=== PATIENT | male | born 1990 | race Caucasian/White ===

== ENCOUNTER 2021-08-01 20:38 | Emergency (ER) | payer OTHER ==
[2021-08-01 20:50] VITALS: BP 146/49
[2021-08-01] MEDS ORDERED: cephALEXin 250 MG CAPSULE PO STA (21:03)
[2021-08-01] MEDS ORDERED: CEPHALEXIN 250 MG Prepack 8 CAP BOTTLE PO STA (21:03)
[2021-08-01] MEDS ORDERED: MUPIROCIN 2% OINT 1 GM TOP STA (21:04)
--- NOTE | 2021-08-01 21:06 | ED Physician Documentation ---
PD HPI LOWER EXT INJURY - Stated complaint Stated Complaint: LEG SWELLING - Chief complaint Chief Complaint: Laceration - History obtained from History obtained from: Patient - Additional information Additional information: Cut his left leg in a work-related accident, [id number] on July 13. Was seen in another hospital and the wound was closed with julia. Julia removed on July 20. Over the last few days increasing pain and swelling around the wound without fevers. Also some redness and drainage. Review of Systems Constitutional: reports: Reviewed and negative Eyes: reports: Reviewed and negative Ears: reports: Reviewed and negative Nose: reports: Reviewed and negative Throat: reports: Reviewed and negative Cardiac: reports: Reviewed and negative PD PAST MEDICAL HISTORY - Past Medical History Past Medical History: No - Past Surgical History Past Surgical History: Yes - Present Medications Home Medications: Ambulatory Orders Medication Instructions Recorded Confirmed Hydrocodone/Acetaminophen 1 tab PO Q6HR PRN 08/01/21 08/01/21 [Hydrocodone-Acetamin 5-300 mg] Mupirocin 2% Oint [Bactroban 2% 1 applic TOP BID #50 gm 08/01/21 Oint] Naproxen 500 mg PO BID 08/01/21 08/01/21 cephALEXin [Keflex] 500 mg PO Q6H #40 cap 08/01/21 - Allergies Allergies/Adverse Reactions: Allergies Allergy/AdvReac Type Severity Reaction Status Date / Time No Known Drug Allergies Allergy Verified 08/01/21 20:50 - Social History Does the pt smoke?: No Smoking Status: Never smoker Does the pt drink ETOH?: Yes Does the pt have substance abuse?: No - Immunizations Immunizations are current?: Yes - POLST Patient has POLST: No PD ED PE NORMAL - Vitals Vital signs reviewed: Yes - General General: Alert and oriented X 3, No acute distress - Extremities Extremities: Other (About a 10 cm slightly dehisced incision on the left anterolateral lower leg with mild surrounding cellulitis and some purulent drainage at the base of the wound which was sent for culture.) - Neuro Neuro: Alert and oriented X 3, Normal speech - Psych Psych: Normal mood, Normal affect Results - Vitals Vitals: Vital Signs - 24 hr 08/01/21 20:43 Temperature 36.6 C Heart Rate 54 L Respiratory 16 Rate Blood Pressure 146/49 H O2 Saturation 98 Oxygen O2 Source Room air - Labs Labs: Microbiology 08/01/21 21:00 Wound Culture - Preliminary Leg - Left PD MEDICAL DECISION MAKING - ED course ED course: Wound was cultured and it was dressed with mupirocin and he is started on Keflex ending results of wound culture. Departure - Departure Disposition: 01 Home, Self Care Clinical Impression: Wound infection Condition: Good Record reviewed to determine appropriate education?: Yes Instructions: ED Wound Infec After Surgery Prescriptions: Mupirocin 2% Oint [Bactroban 2% Oint] 1 applic TOP BID #50 gm cephALEXin [Keflex] 500 mg PO Q6H #40 cap Comments: I sent the prescription for the antibiotic electronically to [facility] in [place]. Return if worsening, if you develop a fever, or pain is more severe. Follow-up with your primary care physician Tuesday or Tuesday for recheck. For wound care you can wash with soap and water. It is okay to be a little rough with it to get any material out when you wash it. Then use the antibiotic ointment which I also sent to the pharmacy with a dry dressing on top. We are performing a wound culture, the results should be done in 48-72 hours. If antibiotic change is necessary we will call you. Return if worse in the meantime, especially if you develop increased pain, fevers, cannot keep down the medication. Otherwise follow-up with your physician in approximately 2-3 days. Discharge Date/Time: 08/01/21 21:33
--- NOTE | 2021-08-04 12:36 | ED Physician Documentation ---
ED Addendum - Addendum Addendum: 08/04/21 12:28 Wound Culture with Staph aureus. will add bactrim. Sent to [facility] Departure - Departure Disposition: 01 Home, Self Care Clinical Impression: Wound infection Condition: Good Instructions: ED Wound Infec After Surgery Prescriptions: Sulfamethox/Trimeth 800/160 [Bactrim Ds 800/160] 1 each PO BID #14 tablet Mupirocin 2% Oint [Bactroban 2% Oint] 1 applic TOP BID #50 gm cephALEXin [Keflex] 500 mg PO Q6H #40 cap Comments: I sent the prescription for the antibiotic electronically to [facility] in [place]. Return if worsening, if you develop a fever, or pain is more severe. Follow-up with your primary care physician Tuesday or Tuesday for recheck. For wound care you can wash with soap and water. It is okay to be a little rough with it to get any material out when you wash it. Then use the antibiotic ointment which I also sent to the pharmacy with a dry dressing on top. We are performing a wound culture, the results should be done in 48-72 hours. If antibiotic change is necessary we will call you. Return if worse in the meantime, especially if you develop increased pain, fevers, cannot keep down the medication. Otherwise follow-up with your physician in approximately 2-3 days. Discharge Date/Time: 08/01/21 21:33
== END 2021-08-01 21:33 | disposition home or self-care (01) ==
LOC: ED 20:38
DX: S81.812A Laceration without foreign body, left lower leg, initial encounter (principal); W45.8XXA Other foreign body or object entering through skin, initial encounter; Y99.0 Civilian activity done for income or pay
CPT/HCPCS: 87070; 87205; 99282; 99283; A9270; 87181